=== PATIENT | male | born 1945 | race Caucasian/White ===

== ENCOUNTER 2017-07-03 14:44 | Emergency (ER) | payer MEDICARE ==
--- NOTE | 2017-07-03 15:36 | RAD ---
PELVIS 1 VIEW: HISTORY: Fall. Trauma. COMPARISON: None. FINDINGS: Limited evaluation of the left inferior suprapubic rami. Questionable left superior pubic ramus frac ture. Iliac wings appear to be intact. On the single projection, contour of both femoral heads are maintained. Hip joint space is symmetric. Postsurgical changes of the lower lumbar spine are noted. IMPRESSION: Left superior pubic ramus fracture suspected. Evaluation of pelvis is limited. Additional imaging i s warranted. POS: JUSTIN
== END 2017-07-03 15:46 | disposition home or self-care (01) ==
LOC: SCSER 14:44
DX: S32.512A Fracture of superior rim of left pubis, initial encounter for closed fracture (principal); E78.5 Hyperlipidemia, unspecified; E11.9 Type 2 diabetes mellitus without complications; I10 Essential (primary) hypertension; G47.30 Sleep apnea, unspecified; I48.91 Unspecified atrial fibrillation; Z79.82 Long term (current) use of aspirin; Z79.4 Long term (current) use of insulin; Z79.899 Other long term (current) drug therapy; W01.0XXA Fall on same level from slipping, tripping and stumbling without subsequent striking against object, initial encounter
CPT/HCPCS: 72170

== ENCOUNTER 2017-07-12 12:30 | Inpatient (IN) | payer MEDICARE ==
[2017-08-17 08:45] VITALS: BMI 44.0
--- NOTE | 2017-08-23 01:08 | HP ---
HISTORY OF PRESENT ILLNESS: Patient is a 72-year-old white male with a long history of progressive d egenerative arthritis of the right hip, unresponsive to conservative treatment including rest, restri ction of activities, lifestyle adjustments, and previous cortisone injections. He is admitted at [facility] s time for total knee replacement. He has had previous left total knee replacement in 2012 with good results. PAST MEDICAL HISTORY: As noted above. The patient also has diabetes, hypertension, atherosclerotic cardiovascular disease and atrial fibrillation on Xarelto. He has stopped Xarelto 3 days prior to [facility]. CURRENT MEDICATIONS: His other medications include aspirin which he has continued, Lasix, gabapentin , lisinopril, Lantus insulin, metformin, Crestor, ____. ALLERGIES: He is allergic to TRADJENTA, INVOKANA and ACTOS. FAMILY HISTORY: Otherwise essentially unremarkable. SOCIAL HISTORY: Otherwise essentially unremarkable. REVIEW OF SYSTEMS: Otherwise essentially unremarkable. PHYSICAL EXAMINATION: GENERAL: Reveals a healthy heavyset male. HEENT: Unremarkable. NECK: Supple. CHEST: Clear. HEART: Regular rate and rhythm. ABDOMEN: Soft, nontender. RECTAL/GENITAL: Deferred. EXTREMITIES: ____ the right knee, there is slight puffiness. There is mild varus. There is tendern ess over the medial and lateral joint lines. Range of motion is 5-105 degrees with crepitus. There is no instability. There are palpable distal pulses, right antalgic gait. Neurovascular exam is int act. X-RAY FINDINGS: X-rays of the right knee reveal tricompartmental DJD with narrowing medially and lat erally. IMPRESSION: 1. Degenerative arthritis, right knee. 2. Status post left total knee replacement. 3. Adult-onset diabetes. 4. Atherosclerotic cardiovascular disease. 5. Hypertension. PLAN: Right total knee replacement. The nature of the surgery, length of recovery, and potential co mplications such as infection, loss of motion, incomplete relief, thromboembolic phenomena, neurovasc ular injury, possible transfusion, and need for revision have been discussed in detail with the patie nt and his .
[2017-08-27] MEDS ORDERED: Sodium Chloride 0.9% 100 ML ONE (06:17)
[2017-08-27] MEDS ORDERED: CEFAZOLIN/Water 2 GM/20 ML SYRINGE ONE (06:17)
[2017-08-27] MEDS ORDERED: Lidocaine 1% (PF) 30 ML VIAL ONE (06:20)
[2017-08-27] MEDS ORDERED: Fentanyl 100 MCG/2 ML VIAL ONE ×3 (06:20→09:28)
[2017-08-27] MEDS ORDERED: Midazolam HCl 2 mg/2 ml Vial ONE (06:20)
[2017-08-27] MEDS ORDERED: Ropivacaine 0.2% HCl/PF 20 ML ONE (06:20)
[2017-08-27] MEDS ORDERED: Bupivacaine HCl 0.25%/Epi 0.0005/PF 10 ML VIAL FS ONE (06:34)
[2017-08-27] MEDS ORDERED: Promethazine HCl 25 MG/ML VIAL IM PRN ×2 (07:50→09:46)
[2017-08-27] MEDS ORDERED: Ondansetron HCl/PF 4 MG/2 ML Vial IVP PRN ×3 (07:50→11:22)
[2017-08-27] MEDS ORDERED: Promethazine HCl 25 MG/ML VIAL SLOW IVP PRN ×2 (07:50→11:22)
[2017-08-27] MEDS ORDERED: Tranexamic Acid 1,000 MG in Sodium Chloride 0.9% 100 ML IVPB SCH ×2 (09:30→11:22)
[2017-08-27] MEDS ORDERED: traMADol HCl 50 MG TAB PO PRN ×3 (09:46→11:22)
[2017-08-27] MEDS ORDERED: Zolpidem Tartrate 5 MG TAB PO PRN ×2 (09:46→11:22)
[2017-08-27] MEDS ORDERED: HYDROcodone/Acetaminophen 7.5/325 mg Tablet PO PRN (09:48)
[2017-08-27] MEDS ORDERED: Fentanyl 100 MCG/2 ML VIAL SLOW IVP PRN ×3 (09:50→11:22)
--- NOTE | 2017-08-27 10:28 | RAD ---
TWO VIEWS RIGHT KNEE: DATE: 08/27/17. HISTORY: Evaluate knee following total knee arthroplasty. FINDINGS: There is evidence of recent total knee arthroplasty, with postoperative gas in the region of the knee joint, particularly superiorly. No evidence for hardware failure. No displaced fracture or disloca tion. Lateral imaging demonstrates gas and fluid within the suprapatellar bursa. IMPRESSION: Postoperative changes as described above, evidence of recent total knee arthroplasty. POS: JUSTIN
--- NOTE | 2017-08-27 10:37 | OP ---
DATE OF PROCEDURE: 08/27/2017 SURGEON: Shamir Mcclellan M.D. RN TELE: ADRIENNE Bailey. ANESTHESIA: General plus femoral site nerve blocks. PREOPERATIVE DIAGNOSIS: Degenerative arthritis, right knee. POSTOPERATIVE DIAGNOSIS: Degenerative arthritis, right knee. PROCEDURES: Right total knee replacement with cemented Triathlon components with computer-assisted n avigation (#6 femoral component, #6 universal tibial baseplate with 11 mm CS plastic insert, and A35 all plastic patellar component). NARRATIVE REPORT: After satisfactory anesthesia was induced in supine position, sequential compressi on device was placed on the non-operative leg throughout the procedure. Right leg was then prepped a nd draped in routine sterile fashion. Right leg was elevated, exsanguinated with an Esmarch bandage, and the tourniquet inflated to 300 mmHg. A gently curved medial parapatellar incision was made and carried down to subcutaneous tissues, and bleeding points controlled with Bovie cautery. Medial para patellar arthrotomy was performed. Patella was dislocated laterally and portions of fat pad excised for exposure. There was marked tricompartmental degenerative arthritis of the knee. Meniscal remnan ts and osteophytes were removed. Using the [employer] pinless navigation system and the appropriate richard jennifer, the distal femoral and proximal tibial articular surfaces were excised with an oscillating saw t o accept the trial components. It was felt that #6 femoral component, #6 universal tibial baseplate with 11 mm CS plastic insert gave appropriate size, fit, stability, and correction of the preoperativ e deformity. The patellar articular surface was excised to accept an all plastic A35 patellar compon ent. The trial components removed. The knee was copiously irrigated with pulsatile lavage and the b kan surfaces thoroughly cleaned and dried. The permanent components were then cemented in a single s tage using 1 package of cement premixed with 1 gram of tobramycin powder. Excess cement was removed. There was good fit and stability of the component. The skin was infiltrated with 30 mL of 0.25% Ma rcaine with epinephrine. The medial retinaculum and quadriceps mechanism was closed with interrupted #2 Vicryl and a running #2 Quill. Subcutaneous tissues were closed with running 0 Quill suture and the skin closed with running subcuticular 3-0 Monoderm and SurgiSeal skin adhesive. A sterile bulky compressive dressing was applied and the tourniquet deflated after 87 minutes. The foot promptly pin ked up and sequential compression device was applied to his operated leg. He was awakened and taken to recovery room in stable condition. There were no apparent intraoperative complications. The renetta mated blood loss was less than 100 mL.
[2017-08-27] MEDS ORDERED: diphenhydrAMINE 25 MG CAP PO PRN (11:22)
[2017-08-27] MEDS ORDERED: Acetaminophen 325 MG TAB PO PRN (11:22)
[2017-08-27] MEDS ORDERED: Ferrous Gluconate 324 MG TAB PO SCH (11:30)
[2017-08-27] MEDS: HYDROcodone/Acetaminophen 7.5/325 mg Tablet PO PRN ×3 (11:34→21:52)
[2017-08-27] MEDS ORDERED: Senokot S 8.6-50 MG TAB PO SCH (11:45)
[2017-08-27] MEDS ORDERED: Multivitamin W/ Minerals 1 TAB PO SCH (11:45)
[2017-08-27] MEDS ORDERED: Gabapentin 300 MG CAP PO SCH (11:45)
[2017-08-27] MEDS ORDERED: metFORMIN XR 500 MG TAB PO SCH (11:45)
[2017-08-27] MEDS ORDERED: Lisinopril 20 MG TAB PO SCH (11:45)
[2017-08-27] MEDS ORDERED: OXcarbazepine 300 MG TAB PO SCH (11:45)
[2017-08-27] MEDS ORDERED: Amiodarone 200 MG TAB PO SCH (11:45)
[2017-08-27] MEDS: Sodium Chloride 0.9% 1,000 ML IV SCH ×2 (11:49→21:50)
[2017-08-27] MEDS ORDERED: Ropivacaine 0.5% HCl/PF (150 MG/30 ML VIAL) ONE (13:26)
[2017-08-27] MEDS ORDERED: Lidocaine 1% PF 5 ML VIAL ONE (14:51)
[2017-08-27] MEDS ORDERED: ePHEDrine/0.9% NaCl/PF SYRINGE 50 mg/10 ml ONE (14:51)
[2017-08-27] MEDS ORDERED: Ketorolac Tromethamine 30 MG/ML VIAL ONE (14:51)
[2017-08-27] MEDS ORDERED: Ondansetron HCl/PF 4 MG/2 ML Vial ONE (14:51)
[2017-08-27] MEDS ORDERED: Glycopyrrolate 0.2 MG/ML 5 ML SYRINGE ONE (14:51)
[2017-08-27] MEDS ORDERED: PROPOFOL 200 MG/20 ML VIAL ONE (14:51)
[2017-08-27] MEDS: CEFAZOLIN/Water 2 GM/20 ML SYRINGE SLOW IVP SCH ×2 (17:11→23:00)
[2017-08-27] MEDS: Ketorolac Tromethamine 30 MG/ML VIAL IVP PRN (19:21)
[2017-08-27] MEDS ORDERED: Dextrose 50% Abboject 50 ML SYRINGE SLOW IVP PRN (19:29)
[2017-08-27] MEDS ORDERED: Dextrose 5% in Water 1,000 ML IV PRN (19:29)
[2017-08-27] MEDS ORDERED: Insulin Regular 300 UNITS/3 ML VIAL SC PRN (19:29)
--- NOTE | 2017-08-27 19:35 | PDOC.PN ---
- Subjective Encounter Start Date: 08/27/17 Encounter Start Time: 14:30 Patient seen and examined for med mngt. No CP/SOB. Follows Dr Duffy. - Objective MAR Reviewed: Yes Vital Signs & Weight: Vital Signs (12 hours) Temp Pulse Resp BP BP Pulse Ox 08/27/17 16:00 97.7 F 60 20 120/67 90 L 08/27/17 12:10 131/69 08/27/17 10:55 96.1 F L 56 L 18 134/73 95 Weight Weight 325 lb Additional Labs: Accuchecks 08/27/17 08/27/17 08/27/17 15:55 12:18 06:29 POC Glucose 315 H 199 H 144 H Radiology Reviewed by me: Yes (Knee XR - DJD) EKG Reviewed by me: Yes (SB with 1 st deg AV block) Phys Exam - Physical Examination Constitutional: NAD Respiratory: no wheezing, no rhonchi Cardiovascular: RRR, no rub Gastrointestinal: soft, non-tender, positive bowel sounds Musculoskeletal: no edema Neurological: moves all 4 limbs Dx/Plan - Plan DVT proph w/SCDs IMPRESSION: 1. DM2 2. HTN 3. Par Afib on anticoag 4. Morbid obesity BMI 44.1 PLAN: Xarelto to be restarted in AM at 10 mg daily Cont Amiodarone Change Lantus to 25 units BID Add low dose sliding scale AM labs Cont Lisinopril Cont current meds as below Full code, DPOA - spouse Review of Systems - Review of Systems Respiratory: negative: Cough, Dry, Shortness of Breath, Hemoptysis, SOB with Excertion, Pleuritic Pain, Sputum, Wheezing Cardiovascular: negative: chest pain, palpitations, orthopnea, paroxysmal nocturnal dyspnea, edema, light headedness, other - Medications/Allergies Allergies/Adverse Reactions: Allergies Allergy/AdvReac Type Severity Reaction Status Date / Time No Known Allergies Allergy Verified 08/17/17 08:45 Medications: Current Medications Acetaminophen (Tylenol) 650 mg PO Q4H PRN PRN Reason: MICHEL/ T > 101F; Mild Pain (1-3) Hydrocodone Bitart/Acetaminophen ([place] 7.5/325) 1 tab PO Q4H PRN PRN Reason: Mild Pain (1-3) Hydrocodone Bitart/Acetaminophen ([place] 7.5/325) 2 tab PO Q4H PRN PRN Reason: Moderate Pain (4-6) Last Admin: 08/27/17 17:11 Dose: 2 tab Amiodarone HCl (Cordarone) 200 mg PO QAM [facility] Aspirin (Aspirin Chewable) 81 mg PO QAM [facility] Cefazolin Sodium (Ancef) 2 gm SLOW IVP Q8HR [facility] Stop: 08/27/17 22:01 Last Admin: 08/27/17 17:11 Dose: 2 gm Cholecalciferol (Vitamin D3) 2,000 units PO QAM [facility] Dextrose/Water (Dextrose 50%) 25 gm SLOW IVP PRN PRN PRN Reason: Hypoglycemia Diphenhydramine HCl (Benadryl) 25 mg PO Q6H PRN PRN Reason: Itching Fentanyl (Sublimaze) 50 mcg SLOW IVP Q30MIN PRN PRN Reason: Moderate Pain (4-6) Last Admin: 08/27/17 19:24 Dose: 50 mcg Fentanyl (Sublimaze) 100 mcg SLOW IVP Q1H PRN PRN Reason: Severe Pain (7-10) Ferrous Gluconate (Fergon) 324 mg PO BID [facility] Gabapentin (Neurontin) 300 mg PO BID [facility] Glucagon (Glucagon) 1 mg IM PRN PRN PRN Reason: Hypoglycemia Bupivacaine HCl 50 ml/ Sodium (Chloride) 100 mls @ 8 mls/hr NERVE BLCK INF [facility] Sodium Chloride (Normal Saline 0.9%) 1,000 mls @ 100 mls/hr IV .Q10H [facility] Last Admin: 08/27/17 11:49 Dose: Not Given Vancomycin HCl 2 gm/ Sodium (Chloride) 500 mls @ 250 mls/hr IVPB 1800 [facility] Stop: 08/27/17 23:59 Last Admin: 08/27/17 18:00 Dose: 500 mls Insulin Glargine 25 units/ (Miscellaneous Medication) 0.25 mls @ 0 mls/hr SC BID [facility] Dextrose/Water (D5w) 1,000 mls @ 0 mls/hr IV .Q0M PRN; As Directed PRN Reason: Hypoglycemia Insulin Human Regular (Humulin R) 0 units SC .MILD SLIDING SCALE PRN PRN Reason: Mild Correctional Scale Insulin Human Regular (Humulin R) 0 units SC .BEDTIME SLIDING SC PRN PRN Reason: Bedtime Correctional Scale Iron/Minerals/Multivitamins (Theragran M) 1 tab PO DAILY [facility] Ketorolac Tromethamine (Toradol) 15 mg IVP Q6H PRN PRN Reason: Moderate Pain (4-6) Stop: 08/30/17 09:47 Last Admin: 08/27/17 19:21 Dose: 15 mg Lisinopril (Zestril) 20 mg PO QAM [facility] Metformin HCl (Glucophage Xr) 1,000 mg PO BID [facility] Ondansetron HCl (Zofran) 4 mg IVP Q6H PRN PRN Reason: Nausea/Vomiting Oxcarbazepine (Trileptal) 300 mg PO BID [facility] Promethazine HCl (Phenergan) 12.5 mg IM Q4H PRN PRN Reason: Nausea Promethazine HCl (Phenergan) 12.5 mg SLOW IVP Q4H PRN PRN Reason: Nausea/Vomiting Rivaroxaban (Xarelto) 10 mg PO DAILY [facility] Rosuvastatin Calcium (Crestor) 10 mg PO HS [facility] Senna/Docusate Sodium (Senokot S) 2 tab PO BID [facility] Sodium Chloride (Flush - Normal Saline) 10 ml IVF PRN PRN PRN Reason: Saline Flush Tramadol HCl (Ultram) 50 mg PO Q6H PRN PRN Reason: Mild Pain (1-3) Tramadol HCl (Ultram) 100 mg PO Q6H PRN PRN Reason: Mild Pain (1-3) Zolpidem Tartrate (Ambien) 5 mg PO HSPRN PRN PRN Reason: Insomnia
[2017-08-27] MEDS ORDERED: Non-Formulary Item 1 EACH (Insulin Glargine,Hum.Rec.Anlog [Lantus Solostar] 50 UNIT) SQ SCH (21:00)
[2017-08-27] MEDS ORDERED: Insulin Glargine 50 UNITS in Pre-Filled Syringe SC SCH (21:00)
[2017-08-27] MEDS ORDERED: Rosuvastatin 10 MG TAB PO SCH (21:00)
[2017-08-27] MEDS: Gabapentin 300 MG CAP PO SCH (21:47)
[2017-08-27] MEDS: Senokot S 8.6-50 MG TAB PO SCH (21:47)
[2017-08-27] MEDS: Ferrous Gluconate 324 MG TAB PO SCH (21:47)
[2017-08-27] MEDS: metFORMIN XR 500 MG TAB PO SCH (21:48)
[2017-08-27] MEDS: Insulin Glargine 25 UNITS in Pre-Filled Syringe SC SCH (21:48)
[2017-08-27] MEDS: OXcarbazepine 300 MG TAB PO SCH (21:49)
[2017-08-27] MEDS: Bupivacaine 0.5% 50 ML in Sodium Chloride 0.9% 50 ML NERVE BLCK SCH (23:24)
[2017-08-28] MEDS: HYDROcodone/Acetaminophen 7.5/325 mg Tablet PO PRN ×4 (02:11→15:08)
[2017-08-28] MEDS: Ketorolac Tromethamine 30 MG/ML VIAL IVP PRN ×2 (04:49→17:00)
[2017-08-28 06:32] LABS: Mean Corpuscular HGB CONC 34.3 g/dL (32.0-36.0); Mean Corpuscular Hemoglobin 31.8 pg (27.0-31.0); Mean Corpuscular Volume 92.7 fL (78.0-98.0); Mean Platelet Volume 6.6 fL (7.4-10.4); Platelet Count 176 thou/uL (130-400); RBC Distribution Width 13.3 % (11.5-14.5); Red Blood Cell (RBC) Count 3.77 mill/uL (4.70-6.10)
[2017-08-28 07:55] LABS: Anion Gap 11 mmol/L (10-20); BUN (Urea Nitrogen) 16 mg/dL (8.4-25.7); Calc. Creatinine Clearance 155 mL/min (70-130); Calcium 8.1 mg/dL (7.8-10.44); Carbon Dioxide 23 mmol/L (23-31); Chloride 102 mmol/L (98-107); Estimated GFR-MDRD 83; Glucose 167 mg/dL (83-110); Magnesium 1.5 mg/dL (1.6-2.6); Potassium 4.2 mmol/L (3.5-5.1); Sodium 132 mmol/L (136-145)
[2017-08-28] MEDS: Lisinopril 20 MG TAB PO SCH (08:24)
[2017-08-28] MEDS: Rivaroxaban 10 MG TAB PO SCH (08:24)
[2017-08-28] MEDS: Rosuvastatin 10 MG TAB PO SCH (08:25)
[2017-08-28] MEDS: Ferrous Gluconate 324 MG TAB PO SCH ×2 (08:25→20:38)
[2017-08-28] MEDS: Senokot S 8.6-50 MG TAB PO SCH ×2 (08:25→20:38)
[2017-08-28] MEDS: metFORMIN XR 500 MG TAB PO SCH ×2 (08:25→20:38)
[2017-08-28] MEDS: Multivitamin W/ Minerals 1 TAB PO SCH (08:25)
[2017-08-28] MEDS: Amiodarone 200 MG TAB PO SCH ×2 (08:25→20:38)
[2017-08-28] MEDS: Gabapentin 300 MG CAP PO SCH ×2 (08:26→20:39)
[2017-08-28] MEDS: Sodium Chloride 0.9% 1,000 ML IV SCH ×2 (08:26→19:37)
[2017-08-28] MEDS ORDERED: Amiodarone 200 MG TAB PO SCH (09:00)
[2017-08-28] MEDS: Insulin Glargine 25 UNITS in Pre-Filled Syringe SC SCH ×2 (09:12→20:47)
[2017-08-28] MEDS: OXcarbazepine 300 MG TAB PO SCH ×2 (09:12→20:39)
[2017-08-28] MEDS ORDERED: Magnesium Sulfate 2 GM in Sodium Chloride 0.9% 100 ML IVPB SCH (09:15)
[2017-08-28] MEDS ORDERED: Magnesium 2 GM/NS 0.9% 100 ML 2 GM in Premix Bag 1 BAG IVPB SCH (09:30)
[2017-08-28] MEDS: Bupivacaine 0.5% 50 ML in Sodium Chloride 0.9% 50 ML NERVE BLCK SCH (12:57)
--- NOTE | 2017-08-28 20:07 | PDOC.PN ---
- Subjective Encounter Start Date: 08/28/17 Encounter Start Time: 13:30 Patient seen and examined for med mngt. Pain controlled. No CP/SOB. No new complaints. No overnight events - Objective MAR Reviewed: Yes Vital Signs & Weight: Vital Signs (12 hours) Temp Pulse Resp BP BP Pulse Ox 08/28/17 15:31 98.4 F 72 18 147/73 H 95 08/28/17 11:39 98.5 F 68 20 130/70 95 08/28/17 08:24 133/65 08/28/17 08:20 98.3 F 73 20 91 L 08/28/17 08:07 98.3 F 73 20 133/65 94 L Weight Admit Weight 325 lb Weight 325 lb I&O: 08/27/17 08/28/17 08/29/17 06:59 06:59 06:59 Intake Total 3143 Output Total 1100 Balance 2042 Result Diagrams: 08/28/17 05:44 08/28/17 07:16 Additional Labs: Accuchecks 08/28/17 08/28/17 08/28/17 16:14 11:40 06:08 POC Glucose 192 H 178 H 169 H 08/27/17 21:02 POC Glucose 200 H Phys Exam - Physical Examination Constitutional: NAD Respiratory: no wheezing, no rhonchi Cardiovascular: RRR, no rub Gastrointestinal: soft, non-tender, positive bowel sounds Musculoskeletal: no edema Neurological: moves all 4 limbs Dx/Plan - Plan plan discussed w/ family, PT/OT, social media marketing specialist, incentive spirometry, out of bed/ambulate, DVT proph w/SCDs IMPRESSION: 1. DM2 - on sliding scale 2. HTN 3. Par Afib on anticoag 4. Morbid obesity BMI 44.1 5. Hypomagnesemia 1.5 6. ДМИТРИЙ on CPAP PLAN: Cont Amiodarone/Xarelto and Lisinopril Cont Lantus to 25 units BID with low dose sliding scale Cont other meds as below Cont to monitor PT/OT Add Miralax Cont CPAP HS Review of Systems - Review of Systems Respiratory: negative: Cough, Dry, Shortness of Breath, Hemoptysis, SOB with Excertion, Pleuritic Pain, Sputum, Wheezing Cardiovascular: negative: chest pain, palpitations, orthopnea, paroxysmal nocturnal dyspnea, edema, light headedness, other Gastrointestinal: Constipation. negative: Nausea, Vomiting, Abdominal Pain, Diarrhea, Melena, Hematochezia, Other - Medications/Allergies Allergies/Adverse Reactions: Allergies Allergy/AdvReac Type Severity Reaction Status Date / Time No Known Allergies Allergy Verified 08/17/17 08:45 Medications: Current Medications Acetaminophen (Tylenol) 650 mg PO Q4H PRN PRN Reason: MICHEL/ T > 101F; Mild Pain (1-3) Hydrocodone Bitart/Acetaminophen ([place] 7.5/325) 1 tab PO Q4H PRN PRN Reason: Mild Pain (1-3) Hydrocodone Bitart/Acetaminophen ([place] 7.5/325) 2 tab PO Q4H PRN PRN Reason: Moderate Pain (4-6) Last Admin: 08/28/17 15:08 Dose: 2 tab Amiodarone HCl (Cordarone) 100 mg PO BID [facility] Last Admin: 08/28/17 08:25 Dose: 100 mg Aspirin (Aspirin Chewable) 81 mg PO [facility] Last Admin: 08/28/17 08:25 Dose: 81 mg Cholecalciferol (Vitamin D3) 2,000 units PO [facility] Last Admin: 08/28/17 08:26 Dose: 2,000 units Dextrose/Water (Dextrose 50%) 25 gm SLOW IVP PRN PRN PRN Reason: Hypoglycemia Diphenhydramine HCl (Benadryl) 25 mg PO Q6H PRN PRN Reason: Itching Fentanyl (Sublimaze) 50 mcg SLOW IVP Q30MIN PRN PRN Reason: Moderate Pain (4-6) Last Admin: 08/27/17 19:24 Dose: 50 mcg Fentanyl (Sublimaze) 100 mcg SLOW IVP Q1H PRN PRN Reason: Severe Pain (7-10) Ferrous Gluconate (Fergon) 324 mg PO BID [facility] Last Admin: 08/28/17 08:25 Dose: 324 mg Gabapentin (Neurontin) 300 mg PO BID [facility] Last Admin: 08/28/17 08:26 Dose: 300 mg Glucagon (Glucagon) 1 mg IM PRN PRN PRN Reason: Hypoglycemia Bupivacaine HCl 50 ml/ Sodium (Chloride) 100 mls @ 8 mls/hr NERVE BLCK INF [facility] Last Admin: 08/28/17 12:57 Dose: 100 mls Sodium Chloride (Normal Saline 0.9%) 1,000 mls @ 100 mls/hr IV .Q10H [facility] Last Admin: 08/28/17 19:37 Dose: Not Given Insulin Glargine 25 units/ (Miscellaneous Medication) 0.25 mls @ 0 mls/hr SC BID [facility] Last Admin: 08/28/17 09:12 Dose: 0.25 mls Dextrose/Water (D5w) 1,000 mls @ 0 mls/hr IV .Q0M PRN; As Directed PRN Reason: Hypoglycemia Insulin Human Regular (Humulin R) 0 units SC .MILD SLIDING SCALE PRN PRN Reason: Mild Correctional Scale Insulin Human Regular (Humulin R) 0 units SC .BEDTIME SLIDING SC PRN PRN Reason: Bedtime Correctional Scale Iron/Minerals/Multivitamins (Theragran M) 1 tab PO DAILY [facility] Last Admin: 08/28/17 08:25 Dose: 1 tab Ketorolac Tromethamine (Toradol) 15 mg IVP Q6H PRN PRN Reason: Moderate Pain (4-6) Stop: 08/30/17 09:47 Last Admin: 08/28/17 17:00 Dose: 15 mg Lisinopril (Zestril) 20 mg PO QAM [facility] Last Admin: 08/28/17 08:24 Dose: 20 mg Metformin HCl (Glucophage Xr) 1,000 mg PO BID [facility] Last Admin: 08/28/17 08:25 Dose: 1,000 mg Ondansetron HCl (Zofran) 4 mg IVP Q6H PRN PRN Reason: Nausea/Vomiting Oxcarbazepine (Trileptal) 300 mg PO BID [facility] Last Admin: 08/28/17 09:12 Dose: 300 mg Promethazine HCl (Phenergan) 12.5 mg IM Q4H PRN PRN Reason: Nausea Promethazine HCl (Phenergan) 12.5 mg SLOW IVP Q4H PRN PRN Reason: Nausea/Vomiting Rivaroxaban (Xarelto) 10 mg PO DAILY [facility] Last Admin: 08/28/17 08:24 Dose: 10 mg Rosuvastatin Calcium (Crestor) 10 mg PO QAM [facility] Last Admin: 08/28/17 08:25 Dose: 10 mg Senna/Docusate Sodium (Senokot S) 2 tab PO BID [facility] Last Admin: 08/28/17 08:25 Dose: 2 tab Sodium Chloride (Flush - Normal Saline) 10 ml IVF PRN PRN PRN Reason: Saline Flush Tramadol HCl (Ultram) 50 mg PO Q6H PRN PRN Reason: Mild Pain (1-3) Tramadol HCl (Ultram) 100 mg PO Q6H PRN PRN Reason: Mild Pain (1-3) Zolpidem Tartrate (Ambien) 5 mg PO HSPRN PRN PRN Reason: Insomnia
[2017-08-28] MEDS ORDERED: Insulin Regular 300 UNITS/3 ML VIAL ONE (20:50)
[2017-08-28] MEDS: Insulin Regular 300 UNITS/3 ML VIAL SC PRN (20:51)
[2017-08-29] MEDS: Bupivacaine 0.5% 50 ML in Sodium Chloride 0.9% 50 ML NERVE BLCK SCH (00:43)
[2017-08-29] MEDS: HYDROcodone/Acetaminophen 7.5/325 mg Tablet PO PRN ×5 (02:42→21:56)
[2017-08-29] MEDS: Sodium Chloride 0.9% 1,000 ML IV SCH ×2 (04:30→12:07)
[2017-08-29] MEDS: Insulin Glargine 25 UNITS in Pre-Filled Syringe SC SCH ×2 (08:59→21:56)
[2017-08-29] MEDS: Senokot S 8.6-50 MG TAB PO SCH ×2 (08:59→21:54)
[2017-08-29] MEDS: metFORMIN XR 500 MG TAB PO SCH ×2 (08:59→21:55)
[2017-08-29] MEDS: Multivitamin W/ Minerals 1 TAB PO SCH (09:00)
[2017-08-29] MEDS: Rosuvastatin 10 MG TAB PO SCH (09:01)
[2017-08-29] MEDS: Gabapentin 300 MG CAP PO SCH ×2 (09:01→21:55)
[2017-08-29] MEDS: Amiodarone 200 MG TAB PO SCH ×2 (09:01→21:55)
[2017-08-29] MEDS: OXcarbazepine 300 MG TAB PO SCH ×2 (09:01→21:55)
[2017-08-29] MEDS: Ferrous Gluconate 324 MG TAB PO SCH ×2 (09:01→21:55)
[2017-08-29] MEDS: Rivaroxaban 10 MG TAB PO SCH (09:02)
[2017-08-29] MEDS: Lisinopril 20 MG TAB PO SCH (09:02)
[2017-08-29] MEDS: Insulin Regular 300 UNITS/3 ML VIAL SC PRN ×3 (11:23→21:57)
[2017-08-29] MEDS ORDERED: hydrALAZINE 20 MG/ML VIAL SLOW IVP PRN (16:44)
[2017-08-29] MEDS ORDERED: Amlodipine 5 MG TAB PO SCH (16:45)
--- NOTE | 2017-08-29 21:38 | PDOC.PN ---
- Subjective Encounter Start Date: 08/29/17 Encounter Start Time: 18:30 Patient seen and examined for med mngt. Some discomfort over the surgical site. No CP/SOB. No overnight events - Objective MAR Reviewed: Yes Vital Signs & Weight: Vital Signs (12 hours) Temp Pulse Resp BP Pulse Ox 08/29/17 20:38 99.3 F 83 17 151/65 H 96 08/29/17 17:12 88 08/29/17 16:30 94 L 08/29/17 16:04 98.4 F 88 20 171/71 H 91 L 08/29/17 11:43 98.4 F 70 20 149/71 H 92 L Weight Admit Weight 325 lb Weight 325 lb I&O: 08/28/17 08/29/17 08/30/17 06:59 06:59 06:59 Intake Total 3143 2065 500 Output Total 1100 825 Balance 2043 1240 500 Result Diagrams: 08/30/17 05:08 08/30/17 05:08 Additional Labs: Accuchecks 08/29/17 08/29/17 08/29/17 20:53 16:07 11:14 POC Glucose 241 H 229 H 176 H 08/29/17 05:29 POC Glucose 204 H Phys Exam - Physical Examination Constitutional: NAD Respiratory: no wheezing, no rhonchi Cardiovascular: RRR, no rub Gastrointestinal: soft, non-tender, positive bowel sounds Musculoskeletal: no edema Neurological: moves all 4 limbs Dx/Plan - Plan DVT proph w/SCDs IMPRESSION: 1. DM2 - on sliding scale 2. HTN - uncontrolled 3. Par Afib on anticoag 4. Morbid obesity BMI 44.1 5. Hypomagnesemia 1.5 - replaced 6. ДМИТРИЙ on CPAP PLAN: One dose Amlodipine 2.5 mg Cont Amiodarone/Xarelto and Lisinopril 20 mg daily Cont Lantus with low dose sliding scale Cont other meds as below Cont to monitor Cont CPAP HS Review of Systems - Review of Systems Cardiovascular: negative: chest pain, palpitations, orthopnea, paroxysmal nocturnal dyspnea, edema, light headedness, other Gastrointestinal: negative: Nausea, Vomiting, Abdominal Pain, Diarrhea, Constipation, Melena, Hematochezia, Other - Medications/Allergies Allergies/Adverse Reactions: Allergies Allergy/AdvReac Type Severity Reaction Status Date / Time No Known Allergies Allergy Verified 08/17/17 08:45 Medications: Current Medications Acetaminophen (Tylenol) 650 mg PO Q4H PRN PRN Reason: MICHEL/ T > 101F; Mild Pain (1-3) Last Admin: 08/29/17 04:02 Dose: 650 mg Hydrocodone Bitart/Acetaminophen ([place] 7.5/325) 1 tab PO Q4H PRN PRN Reason: Mild Pain (1-3) Hydrocodone Bitart/Acetaminophen ([place] 7.5/325) 2 tab PO Q4H PRN PRN Reason: Moderate Pain (4-6) Last Admin: 08/29/17 16:05 Dose: 2 tab Amiodarone HCl (Cordarone) 100 mg PO BID [facility] Last Admin: 08/29/17 09:01 Dose: 100 mg Aspirin (Aspirin Chewable) 81 mg PO [facility] Last Admin: 08/29/17 09:01 Dose: 81 mg Cholecalciferol (Vitamin D3) 2,000 units PO [facility] Last Admin: 08/29/17 09:00 Dose: 2,000 units Dextrose/Water (Dextrose 50%) 25 gm SLOW IVP PRN PRN PRN Reason: Hypoglycemia Diphenhydramine HCl (Benadryl) 25 mg PO Q6H PRN PRN Reason: Itching Fentanyl (Sublimaze) 50 mcg SLOW IVP Q30MIN PRN PRN Reason: Moderate Pain (4-6) Last Admin: 08/27/17 19:24 Dose: 50 mcg Fentanyl (Sublimaze) 100 mcg SLOW IVP Q1H PRN PRN Reason: Severe Pain (7-10) Ferrous Gluconate (Fergon) 324 mg PO BID [facility] Last Admin: 08/29/17 09:01 Dose: 324 mg Gabapentin (Neurontin) 300 mg PO BID [facility] Last Admin: 08/29/17 09:01 Dose: 300 mg Glucagon (Glucagon) 1 mg IM PRN PRN PRN Reason: Hypoglycemia Hydralazine HCl (Apresoline) 10 mg SLOW IVP Q4H PRN PRN Reason: SBP Greater Than 180 Bupivacaine HCl 50 ml/ Sodium (Chloride) 100 mls @ 8 mls/hr NERVE BLCK INF [facility] Last Admin: 08/29/17 00:43 Dose: 100 mls Insulin Glargine 25 units/ (Miscellaneous Medication) 0.25 mls @ 0 mls/hr SC BID [facility] Last Admin: 08/29/17 08:59 Dose: 0.25 mls Dextrose/Water (D5w) 1,000 mls @ 0 mls/hr IV .Q0M PRN; As Directed PRN Reason: Hypoglycemia Insulin Human Regular (Humulin R) 0 units SC .BEDTIME SLIDING SC PRN PRN Reason: Bedtime Correctional Scale Last Admin: 08/28/17 20:51 Dose: 2 unit Insulin Human Regular (Humulin R) 0 units SC .MODERATE SLIDING SC PRN PRN Reason: Moderate Correctional Scale Last Admin: 08/29/17 17:13 Dose: 4 units Iron/Minerals/Multivitamins (Theragran M) 1 tab PO DAILY [facility] Last Admin: 08/29/17 09:00 Dose: 1 tab Ketorolac Tromethamine (Toradol) 15 mg IVP Q6H PRN PRN Reason: Moderate Pain (4-6) Stop: 08/30/17 09:47 Last Admin: 08/28/17 17:00 Dose: 15 mg Lisinopril (Zestril) 20 mg PO QAM [facility] Last Admin: 08/29/17 09:02 Dose: 20 mg Metformin HCl (Glucophage Xr) 1,000 mg PO BID [facility] Last Admin: 08/29/17 08:59 Dose: 1,000 mg Ondansetron HCl (Zofran) 4 mg IVP Q6H PRN PRN Reason: Nausea/Vomiting Oxcarbazepine (Trileptal) 300 mg PO BID [facility] Last Admin: 08/29/17 09:01 Dose: 300 mg Promethazine HCl (Phenergan) 12.5 mg IM Q4H PRN PRN Reason: Nausea Promethazine HCl (Phenergan) 12.5 mg SLOW IVP Q4H PRN PRN Reason: Nausea/Vomiting Rivaroxaban (Xarelto) 10 mg PO DAILY [facility] Last Admin: 08/29/17 09:02 Dose: 10 mg Rosuvastatin Calcium (Crestor) 10 mg PO QAM [facility] Last Admin: 08/29/17 09:01 Dose: 10 mg Senna/Docusate Sodium (Senokot S) 2 tab PO BID [facility] Last Admin: 08/29/17 08:59 Dose: 2 tab Sodium Chloride (Flush - Normal Saline) 10 ml IVF PRN PRN PRN Reason: Saline Flush Tramadol HCl (Ultram) 50 mg PO Q6H PRN PRN Reason: Mild Pain (1-3) Tramadol HCl (Ultram) 100 mg PO Q6H PRN PRN Reason: Mild Pain (1-3) Zolpidem Tartrate (Ambien) 5 mg PO HSPRN PRN PRN Reason: Insomnia
[2017-08-30] MEDS: HYDROcodone/Acetaminophen 7.5/325 mg Tablet PO PRN ×2 (02:49→08:45)
[2017-08-30 06:31] LABS: Hemoglobin 10.8 g/dL (14.0-18.0); Platelet Count 193 thou/uL (130-400)
[2017-08-30 06:51] LABS: Anion Gap 11 mmol/L (10-20); BUN (Urea Nitrogen) 14 mg/dL (8.4-25.7); Calc. Creatinine Clearance 155 mL/min (70-130); Calcium 8.8 mg/dL (7.8-10.44); Carbon Dioxide 26 mmol/L (23-31); Chloride 99 mmol/L (98-107); Estimated GFR-MDRD 83; Glucose 164 mg/dL (83-110); Magnesium 1.8 mg/dL (1.6-2.6); Potassium 4.2 mmol/L (3.5-5.1); Sodium 132 mmol/L (136-145)
[2017-08-30] MEDS: Insulin Glargine 25 UNITS in Pre-Filled Syringe SC SCH (08:45)
[2017-08-30] MEDS: Multivitamin W/ Minerals 1 TAB PO SCH (08:46)
[2017-08-30] MEDS: Senokot S 8.6-50 MG TAB PO SCH (08:46)
[2017-08-30] MEDS: OXcarbazepine 300 MG TAB PO SCH (08:47)
[2017-08-30] MEDS: Rosuvastatin 10 MG TAB PO SCH (08:47)
[2017-08-30] MEDS: metFORMIN XR 500 MG TAB PO SCH (08:47)
[2017-08-30] MEDS: Rivaroxaban 10 MG TAB PO SCH (08:47)
[2017-08-30] MEDS: Amiodarone 200 MG TAB PO SCH (08:48)
[2017-08-30] MEDS: Gabapentin 300 MG CAP PO SCH (08:48)
[2017-08-30] MEDS: Lisinopril 20 MG TAB PO SCH (08:49)
[2017-08-30] MEDS: Ferrous Gluconate 324 MG TAB PO SCH (08:49)
[2017-08-30] MEDS ORDERED: Rivaroxaban 10 MG TAB PO SCH (09:00)
[2017-08-30 11:16] VITALS: BP 124/69; TEMP 99.1
[2017-08-30] MEDS: Insulin Regular 300 UNITS/3 ML VIAL SC PRN (11:26)
[2017-08-31] MEDS ORDERED: Rivaroxaban 10 MG TAB PO SCH ×2 (06:00→09:00)
== END 2017-08-30 11:50 | disposition home or self-care (01) | DRG 470 ==
LOC: SURG A 08-27 05:32 → SJJU 08-27 12:02 → EDSTATUS 08-27 12:30
PROVIDERS: ADMIT Orthopaedic Surgery; ATTEND Orthopaedic Surgery
PROC: 0SRC0J9 Replacement of Right Knee Joint with Synthetic Substitute, Cemented, Open Approach (ICD-10-PCS; principal; 2017-08-27)
DX: M17.11 Unilateral primary osteoarthritis, right knee (principal); Z68.41 Body mass index [BMI] 40.0-44.9, adult; E11.9 Type 2 diabetes mellitus without complications; I10 Essential (primary) hypertension; I48.0 Paroxysmal atrial fibrillation; E66.01 Morbid (severe) obesity due to excess calories; E83.42 Hypomagnesemia; G47.33 Obstructive sleep apnea (adult) (pediatric); Z96.652 Presence of left artificial knee joint; I25.10 Atherosclerotic heart disease of native coronary artery without angina pectoris; Z79.01 Long term (current) use of anticoagulants; Z88.8 Allergy status to other drugs, medicaments and biological substances; Z79.4 Long term (current) use of insulin
CPT/HCPCS: 36415; 36416; 80048; 83735; 85014; 85018; 85027; 85049; C1713; C1776; G8978-GP-CM; G8979-GP-CK; J1815; J1885; J2001; J2250; J2405; J2704; J2795; J3010; J3370; J3475; J3490; J7050

== ENCOUNTER 2017-08-17 08:20 | Outpatient (CLI) | payer MEDICARE ==
[2017-08-17 09:16] LABS: #Eosinphils 0.1 thou/uL (0.0-0.7); #Lymphocytes 1.6 thou/uL (1.20-3.40); #Monocytes 0.7 thou/uL (0.11-0.59); #Neutrophils 3.7 thou/uL (1.40-6.50); %Basophils 0.4 % (0.0-1.0); %Eosinophils 2.2 % (0.0-10.0); %Lymphocytes 26.4 % (21.0-51.0); %Monocytes 10.5 % (0.0-10.0); %Neutrophils 60.5 % (42.0-75.0); Bilirubin Negative (Negative); Blood, Urine Trace (Negative); Clarity CLEAR (Clear); Glucose, Urine (Dipstick) Negative (Negative); Hemoglobin 14.3 g/dL (14.0-18.0); Leukocyte Negative (Negative); Mean Corpuscular HGB CONC 33.3 g/dL (32.0-36.0); Mean Corpuscular Hemoglobin 30.8 pg (27.0-31.0); Mean Corpuscular Volume 92.6 fL (78.0-98.0); Mean Platelet Volume 6.5 fL (7.4-10.4); Nitrite Negative (Negative); Platelet Count 226 thou/uL (130-400); Protein, Urine (Dipstick) Negative (Neg-Trace); RBC Distribution Width 13.3 % (11.5-14.5); Red Blood Cell (RBC) Count 4.64 mill/uL (4.70-6.10); Urobilinogen 0.2 mg/dL (0.2-1.0); White Blood Cell (WBC) Count 6.1 thou/uL (4.8-10.8)
[2017-08-17 09:18] LABS: Bacteria/HPF None Seen HPF (None Seen); Hyaline Casts/LPF 0-3 HYALINE CAST LPF (0-3 Hyaline); Pathc Cast-AUWi Flag 0.29 (0-2.49); RBC/HPF 0-3 HPF (0-3); Squamous Epithelial None Seen HPF (0-3); WBC/HPF None Seen HPF (0-3)
[2017-08-17 09:25] LABS: PTT 34.7 SEC (22.9-36.1)
[2017-08-17 09:31] LABS: Anion Gap 12 mmol/L (10-20); BUN (Urea Nitrogen) 15 mg/dL (8.4-25.7); Calc. Creatinine Clearance 0 mL/min (70-130); Calcium 9.2 mg/dL (7.8-10.44); Carbon Dioxide 26 mmol/L (23-31); Chloride 101 mmol/L (98-107); Estimated GFR-MDRD 83; Glucose 185 mg/dL (83-110); Potassium 4.3 mmol/L (3.5-5.1); Sodium 135 mmol/L (136-145)
--- NOTE | 2017-08-17 17:08 | EKG ---
Test Reason : Blood Pressure : / mmHG Vent. Rate : 057 BPM Atrial Rate : 057 BPM P-R Int : 212 ms QRS Dur : 130 ms QT Int : 480 ms P-R-T Axes : 029 -35 034 degrees QTc Int : 467 ms Sinus bradycardia with 1st degree A-V block Left axis deviation Right bundle branch block Inferior infarct (cited on or before 13-JUN-2016) Abnormal ECG When compared with ECG of 13-JUN-2016 08:58, Right bundle branch block is now Present Confirmed by DR. Maico ROD ([id number]) on 08/17/2017 5:08:09 PM Referred By: ERIC Confirmed By:DR. Maico ROD
== END 2017-08-17 08:21 | disposition home or self-care (01) ==
LOC: LABBT 08:20
PROVIDERS: ATTEND Orthopaedic Surgery
DX: Z01.818 Encounter for other preprocedural examination (principal); M17.11 Unilateral primary osteoarthritis, right knee
CPT/HCPCS: 80048; 81001; 85025; 85610; 85730; 87081; 93005; 93010

== ENCOUNTER 2017-08-23 09:00 | Outpatient (CLI) | payer MEDICARE | END 2017-08-23 09:01 | disposition home or self-care (01) | LOC: LABBT 09:00 | PROVIDERS: ATTEND Orthopaedic Surgery | DX: Z01.818 Encounter for other preprocedural examination (principal); M17.11 Unilateral primary osteoarthritis, right knee | CPT/HCPCS: 86850; 86900; 86901 ==

== ENCOUNTER 2017-11-13 11:11 | Outpatient (CLI) | payer MEDICARE ==
[2017-11-13 12:36] LABS: #Basophils 0.1 thou/uL (0.0-0.2); #Eosinphils 0.2 thou/uL (0.0-0.7); #Monocytes 0.7 thou/uL (0.11-0.59); #Neutrophils 3.8 thou/uL (1.40-6.50); %Eosinophils 2.6 % (0.0-10.0); %Monocytes 10.5 % (0.0-10.0); %Neutrophils 55.9 % (42.0-75.0); Hemoglobin 13.4 g/dL (14.0-18.0); Mean Corpuscular HGB CONC 32.5 g/dL (32.0-36.0); Mean Corpuscular Hemoglobin 29.1 pg (27.0-31.0); Mean Corpuscular Volume 89.6 fL (78.0-98.0); Mean Platelet Volume 6.3 fL (7.4-10.4); Platelet Count 293 thou/uL (130-400); RBC Distribution Width 14.4 % (11.5-14.5); Red Blood Cell (RBC) Count 4.61 mill/uL (4.70-6.10); White Blood Cell (WBC) Count 6.8 thou/uL (4.8-10.8)
[2017-11-13 12:56] LABS: Anion Gap 14 mmol/L (10-20); BUN (Urea Nitrogen) 16 mg/dL (8.4-25.7); Calc. Creatinine Clearance 0 mL/min (70-130); Calcium 9.3 mg/dL (7.8-10.44); Carbon Dioxide 23 mmol/L (23-31); Chloride 105 mmol/L (98-107); Estimated GFR-MDRD 80; Glucose 90 mg/dL (83-110); Potassium 4.6 mmol/L (3.5-5.1); Sodium 137 mmol/L (136-145)
== END 2017-11-13 11:12 | disposition home or self-care (01) ==
LOC: LABBT 11:11
PROVIDERS: ATTEND Orthopaedic Surgery
DX: Z01.818 Encounter for other preprocedural examination (principal); G56.01 Carpal tunnel syndrome, right upper limb
CPT/HCPCS: 80048; 85025; 93005; 93010

== ENCOUNTER 2017-11-14 06:54 | Day surgery (SDC) | payer MEDICARE ==
--- NOTE | 2017-11-13 09:02 | HP ---
DATE OF ADMISSION: 11/14/2017 HISTORY OF PRESENT ILLNESS: The patient is a 72-year-old white male with a 6 month history of pain a nd tingling in his right hand, especially his middle and index fingers for the past six months. He h as had no injury. He has had persistent symptoms despite rest, restriction of activities, and splint ing. His symptoms may have become somewhat worse after using a walker following right total knee rep lacement in August of this year. PAST MEDICAL HISTORY: Please see the old chart. The patient has history of diabetes, hypertension, atrial fibrillation, bilateral total knee replacements and previous back surgery. CURRENT MEDICATIONS: Include aspirin, insulin, gabapentin, lisinopril, Xarelto, which he has stopped 3 days prior to anticipate surgery, Oxcarbazepine, Pacerone, Lasix, metformin. ALLERGIES: He is allergic to TRADJENTA, INVOKANA, and ACTOS. FAMILY HISTORY, SOCIAL HISTORY, REVIEW OF SYSTEMS: Otherwise unremarkable. Please see the old chart . PHYSICAL EXAMINATION: GENERAL: Reveals a healthy heavyset male. HEENT: Unremarkable. NECK: Supple. CHEST: Clear. HEART: Regular rate and rhythm. ABDOMEN: Soft, nontender. RECTAL/GENITAL: Deferred. EXTREMITIES: Pertinent findings of the right wrist. There is some questionable right thenar atrophy . There is no point tenderness. There is full range of motion. There is no crepitus. Motor exam i s intact. There is decreased sensation in median nerve distribution. There is a negative Tinel sign , negative Phalen's test. Pulses are 2+. IMAGING: Electrodiagnostic studies reveal severe right carpal tunnel syndrome and mild left carpal t unnel syndrome. IMPRESSION: 1. Right carpal tunnel syndrome. 2. Diabetes. 3. History of atrial fibrillation. 4. Status post bilateral total knee replacements. 5. History of hypertension. PLAN: Endoscopic possible open right carpal tunnel release. The nature of the surgery, length of re covery, and potential complications such as infection, loss of motion, incomplete relief, nerve injur y, recurrence, and need for additional treatment or repeat surgery have been discussed in detail.
[2017-11-13 11:23] VITALS: BMI 43.4
[2017-11-14] MEDS ORDERED: CEFAZOLIN/Water 2 GM/20 ML SYRINGE ONE (08:21)
[2017-11-14] MEDS ORDERED: Promethazine HCl 25 MG/ML VIAL ONE (08:42)
[2017-11-14] MEDS ORDERED: Fentanyl 100 MCG/2 ML VIAL ONE (08:42)
[2017-11-14] MEDS ORDERED: Lidocaine 1% w/Epinephrine 1:100K 30 ML VIAL ONE (08:44)
[2017-11-14] MEDS ORDERED: Bupivacaine PF 0.5% 30 ML VIAL ONE (08:44)
[2017-11-14] MEDS ORDERED: Lidocaine 1% (PF) 30 ML VIAL ONE (08:45)
[2017-11-14] MEDS ORDERED: PHENYLEPHRINE-NS 100 MCG/ML 10 ML SYRINGE ONE (11:23)
[2017-11-14] MEDS ORDERED: PROPOFOL 200 MG/20 ML VIAL ONE (11:23)
[2017-11-14] MEDS ORDERED: Ketorolac Tromethamine 30 MG/ML VIAL ONE (11:23)
[2017-11-14] MEDS ORDERED: Dexamethasone 20 MG/5 ML VIAL ONE (11:23)
[2017-11-14] MEDS ORDERED: Ondansetron HCl/PF 4 MG/2 ML Vial ONE (11:23)
[2017-11-14] MEDS ORDERED: Glycopyrrolate 0.2 MG/ML 5 ML SYRINGE ONE (11:23)
--- NOTE | 2017-11-14 11:29 | OP ---
DATE OF PROCEDURE: 11/14/2017 SURGEON: Shamir Mcclellan M.D. ANESTHESIA: General. PREOPERATIVE DIAGNOSIS: Right carpal tunnel syndrome. POSTOPERATIVE DIAGNOSIS: Right carpal tunnel syndrome. PROCEDURE: Right endoscopic carpal tunnel release. NARRATIVE REPORT: After satisfactory anesthesia was induced in supine position, the patient was prep ped and draped in routine manner. Right arm was elevated, exsanguinated with an Esmarch bandage, and the tourniquet inflated to 200 mmHg. A 2 cm transverse incision was made in the proximal wrist flex ion crease, carried down to subcutaneous tissues. Bleeding points controlled with cautery. Using sh cedric and blunt dissection, a distally based flap a deep forearm fascia was developed and retracted dis tally. The proximal edge of the deep forearm fascia was split under direct visualization with small scissors to make sure there was no proximal impingement of the median nerve. Synovium elevator was i ntroduced beneath the transverse carpal ligament and synovium cleaned from the undersurface. Carpal tunnel dilators were inserted. The Adzillae endoscopic carpal tunnel system was introduced beneath th e transverse carpal ligament in line with the ring finger. The distal edge of the ligament was easil y identified and then divided in a distal to proximal direction by pulling the trigger of the assembl y, engaging the knife, and withdrawing the scope proximally. This is done in several stages to make sure there was complete division of the transverse carpal ligament which was documented with the vide o printer. After withdrawing the scope, a carpal tunnel dilator could be inserted into the carpal tu nnel. There was markedly improved passage and subcutaneous position of the instrument. The scope wa s reintroduced into the carpal tunnel. There was wide separation of the two leaves of the transverse carpal ligament. The tourniquet was released after 7 minutes. There was no excessive bleeding. Th e scope was withdrawn. The wound was then thoroughly irrigated and closed with running subcuticular 3-0 nylon. Sterile dressing was applied. The patient immobilized in a Velcro wrist splint. He was awakened and taken to recovery in stable condition. There were no apparent intraoperative complicati ons. The estimated blood loss was negligible. The patient will be discharged home in satisfactory condition. He was instructed on ice, elevation, and given written wound care instructions. He was given a prescription for [place] 5 for pain, 24 tabl ets. He will recheck in my office in approximately 2 weeks or sooner if there any problems prior to that time.
== END 2017-11-14 11:14 | disposition home or self-care (01) ==
LOC: SDC 06:54
PROVIDERS: ATTEND Orthopaedic Surgery
PROC: 01N54ZZ Release Median Nerve, Percutaneous Endoscopic Approach (ICD-10-PCS; principal; 2017-11-14)
DX: G56.01 Carpal tunnel syndrome, right upper limb (principal); E11.9 Type 2 diabetes mellitus without complications; I48.91 Unspecified atrial fibrillation; I10 Essential (primary) hypertension; Z96.651 Presence of right artificial knee joint; Z79.82 Long term (current) use of aspirin; Z79.4 Long term (current) use of insulin; Z79.899 Other long term (current) drug therapy; Z88.8 Allergy status to other drugs, medicaments and biological substances
CPT/HCPCS: 36416; J1100; J1885; J2001; J2405; J2550; J2704; J3010; S0020

== ENCOUNTER 2019-12-29 10:29 | Outpatient (CLI) | payer MEDICARE ==
--- NOTE | 2019-12-29 12:04 | MRI ---
MRI Upper Ext Jt Rt WO Con History: Degenerative disease of the acromioclavicular joint. Comparison: Shoulder radiographs November 13, 2019 Findings: Biceps tendon: Biceps tendon is ruptured with no abnormal intra-articular or intra-articula r tendon remaining. Labrum: Circumferential labral maceration. Rotator cuff: Full-thickness full width supraspinatus and infraspinatus tendon tears from the footpri nt retracted to the glenoid. Severe tendinosis of the torn fibers with scar. The subscapularis is also ruptured from the lesser tuberosity retracted 1.5 cm. Bones: Os acromiale between the preacromion and mesoacromion. Sclerosed inferior margin of the acromi on due to abnormal articulation with the humeral head. Large humeral head/neck osteophytes. Large glenoid osteophytes. Soft tissues: Moderate synovitis. Large ganglion pseudocyst extending from the acromioclavicular join t containing debris measuring 5.5 cm in transverse with an AP dimension of 4.1 cm and a craniocaudal dimension of 3.7 cm. This measures of the small neck to the distal clavicular intraosseo us cyst. Extensive chondral fissuring and fraying throughout the glenoid and humeral head. Muscles: High-grade supraspinatus, infraspinatus, and subscapularis muscle atrophy. Impression: 1. Corresponding to the soft tissue mass is a large ganglion pseudocyst with the neck extending from the distal clavicular intraosseous cyst into the superficial soft tissues just superficial to the trapezius muscle. Although solid component evaluation is limited without intravenous contrast, none i s felt to be likely. 2. Full-thickness full width retracted supraspinatus, infraspinatus and subscapularis tendon tear fro m the footprint with high-grade atrophy. 3. Circumferential labral maceration. 4. Chronically torn and retracted biceps tendon. 5. Advanced degenerative disease throughout the shoulder.
== END 2019-12-29 10:30 | disposition home or self-care (01) ==
LOC: EDBD → TBSIIMAG 10:29
PROVIDERS: ATTEND Orthopaedic Surgery
DX: M19.011 Primary osteoarthritis, right shoulder (principal); M75.121 Complete rotator cuff tear or rupture of right shoulder, not specified as traumatic

== ENCOUNTER 2020-06-14 10:29 | Outpatient (CLI) | payer MEDICARE ==
[2020-06-14 12:08] LABS: #Eosinphils 0.2 10x3/uL (0.0-0.5); #Monocytes 0.7 10x3/uL (0.0-1.1); #Neutrophils 3.5 10x3/uL (1.5-8.4); %Basophils 0.6 % (0.0-2.0); %Eosinophils 3.2 % (0.0-6.0); %Monocytes 9.5 % (0.0-10.0); %Neutrophils 48.3 % (40.0-75.0); Hemoglobin 13.9 g/dL (13.5-17.5); Mean Corpuscular HGB CONC 32.6 g/dL (32.0-36.0); Mean Corpuscular Hemoglobin 29.8 pg (27.0-33.0); Mean Corpuscular Volume 91.4 fl (81.2-95.1); Mean Platelet Volume 9.3 fl (7.4-10.4); Platelet Count 217 10x3/uL (150-450); RBC Distribution Width 13.9 % (11.5-14.5); Red Blood Cell (RBC) Count 4.67 10x6/uL (4.32-5.72); White Blood Cell (WBC) Count 7.2 10x3/uL (3.5-10.5)
[2020-06-14 12:18] LABS: Anion Gap 18 mmol/L (10-20); BUN (Urea Nitrogen) 17 mg/dL (8.4-25.7); Calc. Creatinine Clearance 0 mL/min (70-130); Calcium 8.9 mg/dL (7.8-10.44); Carbon Dioxide 25 mmol/L (23-31); Chloride 99 mmol/L (98-107); Glucose 236 mg/dL (83-110); Potassium 4.3 mmol/L (3.5-5.1); Sodium 138 mmol/L (136-145)
[2020-06-14 12:28] LABS: Prothrombin Time 11.2 sec (9.5-12.1)
[2020-06-15 02:13] LABS: SARS-CoV-2 PCR by NAA Not Detected (NotDetected)
== END 2020-06-14 10:30 | disposition home or self-care (01) ==
LOC: LABBT 10:29
PROVIDERS: ATTEND Orthopaedic Surgery
DX: Z01.818 Encounter for other preprocedural examination (principal); M75.121 Complete rotator cuff tear or rupture of right shoulder, not specified as traumatic; M25.811 Other specified joint disorders, right shoulder; Z20.822 Contact with and (suspected) exposure to COVID-19
CPT/HCPCS: 80048; 85025; 85610; 93005; U0003; U0005; 87635; 93010

== ENCOUNTER 2020-06-17 06:19 | Day surgery (SDC) | payer MEDICARE ==
[2020-06-16 13:48] VITALS: BMI 48.8
[2020-06-17] MEDS ORDERED: Fentanyl 100 MCG/2 ML VIAL ONE ×2 (08:07→11:30)
[2020-06-17] MEDS ORDERED: Midazolam HCl 2 mg/2 ml Vial ONE (08:07)
[2020-06-17] MEDS ORDERED: PROPOFOL 200 MG/20 ML VIAL ONE (09:45)
[2020-06-17] MEDS ORDERED: Lidocaine 1% PF 5 ML VIAL ONE (09:45)
[2020-06-17] MEDS ORDERED: Ondansetron PF 4 MG/2 ML Vial ONE (09:45)
[2020-06-17] MEDS ORDERED: Glycopyrrolate 0.2 MG/ML 5 ML SYRINGE ONE (09:45)
[2020-06-17] MEDS ORDERED: Ropivacaine 0.5% HCl/PF (150 MG/30 ML VIAL) ONE (09:45)
[2020-06-17] MEDS ORDERED: Rocuronium Bromide 10 MG/ML (10ML VIAL) ONE (09:45)
[2020-06-17] MEDS ORDERED: Promethazine HCl 25 MG/ML VIAL IM PRN (11:19)
[2020-06-17] MEDS ORDERED: Ondansetron HCl/PF 4 MG/2 ML Vial IVP PRN (11:19)
[2020-06-17] MEDS ORDERED: Promethazine HCl 25 MG/ML VIAL SLOW IVP PRN (11:19)
== END 2020-06-17 14:21 | disposition home or self-care (01) ==
LOC: SDC 06:19
PROVIDERS: ATTEND Orthopaedic Surgery
PROC: 0PB90ZZ Excision of Right Clavicle, Open Approach (ICD-10-PCS; principal; 2020-06-17)
PROC: 3E0T3BZ Introduction of Anesthetic Agent into Peripheral Nerves and Plexi, Percutaneous Approach (ICD-10-PCS; 2020-06-17)
DX: M75.121 Complete rotator cuff tear or rupture of right shoulder, not specified as traumatic (principal); M19.011 Primary osteoarthritis, right shoulder; M67.411 Ganglion, right shoulder; S46.211A Strain of muscle, fascia and tendon of other parts of biceps, right arm, initial encounter; G89.18 Other acute postprocedural pain; G47.33 Obstructive sleep apnea (adult) (pediatric); E11.9 Type 2 diabetes mellitus without complications; I48.91 Unspecified atrial fibrillation; J32.0 Chronic maxillary sinusitis; I11.9 Hypertensive heart disease without heart failure; Z87.891 Personal history of nicotine dependence; Z79.01 Long term (current) use of anticoagulants; Z79.4 Long term (current) use of insulin; Z79.82 Long term (current) use of aspirin; Z79.899 Other long term (current) drug therapy
CPT/HCPCS: 36416; J0690; J2250; J2405; J2704; J2795; J3010

== ENCOUNTER 2021-07-15 12:48 | Outpatient (CLI) | payer MEDICARE | END 2021-07-15 12:49 | disposition home or self-care (01) | LOC: LABBT 12:48 | PROVIDERS: ATTEND Internal Medicine | DX: Z12.11 Encounter for screening for malignant neoplasm of colon (principal); R06.02 Shortness of breath; R13.10 Dysphagia, unspecified; R60.0 Localized edema; Z20.822 Contact with and (suspected) exposure to COVID-19 | CPT/HCPCS: U0003; U0005 ==

== ENCOUNTER 2021-07-20 06:30 | Day surgery (SDC) | payer MEDICARE ==
[2021-07-19 10:57] VITALS: BMI 48.8
[2021-07-20] MEDS ORDERED: Glycopyrrolate 0.2 MG/ML 5 ML SYRINGE ONE (08:48)
[2021-07-20] MEDS ORDERED: PROPOFOL 200 MG/20 ML VIAL ONE (08:48)
[2021-07-20] MEDS ORDERED: Lidocaine 1% PF 5 ML VIAL ONE (08:48)
== END 2021-07-20 10:05 | disposition home or self-care (01) ==
LOC: SDC 06:30
PROVIDERS: ATTEND Internal Medicine
PROC: 0DB68ZX Excision of Stomach, Via Natural or Artificial Opening Endoscopic, Diagnostic (ICD-10-PCS; principal; 2021-07-20)
PROC: 0DJD8ZZ Inspection of Lower Intestinal Tract, Via Natural or Artificial Opening Endoscopic (ICD-10-PCS; 2021-07-20)
DX: Z12.11 Encounter for screening for malignant neoplasm of colon (principal); K29.50 Unspecified chronic gastritis without bleeding; K20.90 Esophagitis, unspecified without bleeding; K63.5 Polyp of colon; K57.30 Diverticulosis of large intestine without perforation or abscess without bleeding; K64.8 Other hemorrhoids; K64.4 Residual hemorrhoidal skin tags; R13.19 Other dysphagia; G47.33 Obstructive sleep apnea (adult) (pediatric); E11.9 Type 2 diabetes mellitus without complications; I48.91 Unspecified atrial fibrillation; I89.0 Lymphedema, not elsewhere classified; Z86.16 Personal history of COVID-19; Z87.891 Personal history of nicotine dependence; Z79.01 Long term (current) use of anticoagulants; Z79.4 Long term (current) use of insulin; Z79.82 Long term (current) use of aspirin; Z79.84 Long term (current) use of oral hypoglycemic drugs; Z79.899 Other long term (current) drug therapy
CPT/HCPCS: 43239; 82962; G0121; 36416; 88305; 88342; J2704

== ENCOUNTER 2022-03-22 09:21 | Outpatient (CLI) | payer MEDICARE | END 2022-03-22 09:22 | disposition home or self-care (01) | LOC: RAD 09:21 | PROVIDERS: ATTEND Internal Medicine Critical Care Medicine | DX: R06.00 Dyspnea, unspecified (principal) | CPT/HCPCS: 71046 ==